=== PATIENT | female | born 1995 | race Asian ===

== ENCOUNTER 2019-08-26 17:09 | Emergency (ER) | payer OTHER ==
--- NOTE | 2019-08-26 18:39 | ED ---
Laceration/Wound HPI - HPI Summary HPI Summary: 24 year old female presents with left middle finger laceration. She cut it on a knife. Her immunizations are up-to-date. Has no medical conditions. The area continues to bleed. no numbness or tingling. Has full range of motion. no medical conditions. - History of Current Complaint Stated Complaint: FINGER LACERATION Time Seen by Provider: 08/26/19 17:57 Pain Intensity: 2 - Allergy/Home Medications Allergies/Adverse Reactions: Allergies Allergy/AdvReac Type Severity Reaction Status Date / Time Penicillins Allergy Rash Verified 08/26/19 17:38 PMH/Surg Hx/FS Hx/Imm Hx Endocrine/Hematology History: Denies: Hx Anticoagulant Therapy Respiratory History: Denies: Hx Asthma Infectious Disease History: No Infectious Disease History: Denies: Traveled Outside the [place] in Last 30 Days - Family History Known Family History: Positive: Non-Contributory - Social History Lives: Dormitory/Roommates Smoking Status (MU): Never Smoked Tobacco Review of Systems Negative: Fever Negative: Chest Pain Negative: Shortness Of Breath Positive: Other - left middle finger laceration All Other Systems Reviewed And Are Negative: Yes Physical Exam Triage Information Reviewed: Yes Vital Signs On Initial Exam: Initial Vitals Temp Pulse Resp BP Pulse Ox 99.3 F 84 14 126/74 98 08/26/19 17:35 08/26/19 17:35 08/26/19 17:35 08/26/19 17:35 08/26/19 17:35 Vital Signs Reviewed: Yes Appearance: Positive: Well-Appearing Skin: Positive: Warm, Dry, Other - 1cm superficial laceration Head/Face: Positive: Normal Head/Face Inspection ENT: Positive: Pharynx normal Respiratory/Lung Sounds: Positive: Clear to Auscultation, Breath Sounds Present Cardiovascular: Positive: Normal, RRR Musculoskeletal: Positive: Strength/ROM Intact - left index finger laceration, Other - capillary refill<2 secs Neurological: Positive: Normal Psychiatric: Positive: Normal Procedures - Sedation Patient Received Moderate/Deep Sedation with Procedure: No - Laceration/Wound Repair 1 Location: Other - left middle finger laceration Length, Depth and Shape: 1cm superficial Irrigated w/ Saline (ccs): 100 Closure: Skin Adhesive Diagnostics - Vital Signs Vital Signs Temp Pulse Resp BP Pulse Ox 08/26/19 17:35 99.3 F 84 14 126/74 98 - Laboratory Lab Statement: Any lab studies that have been ordered have been reviewed, and results considered in the medical decision making process. Laceration Repair Course/Dx - Course Course Of Treatment: 24 year old female presents with left middle finger laceration. She cut it on a knife. Her immunizations are up-to-date. Has no medical conditions. The area continues to bleed. no numbness or tingling. Has full range of motion. no medical conditions. On exam has 1cm superficial laceration of left middle finger. Cleaned area and place glue. told to keep area clean and dry. Patient understands and agrees with plan. - Differential Dx Differental Diagnoses: Abrasion, Avulsion, Laceration - Clinical Impression Provider Diagnoses: Laceration of left middle finger Discharge ED - Sign-Out/Discharge Documenting (check all that apply): Patient Departure - Discharge Plan Condition: Good Disposition: HOME Patient Education Materials: Skin Adhesive Care (ED) Referrals: [facility] - Steve GOLDEN [Primary Care Provider] - Additional Instructions: Take Tylenol or ibuprofen for pain as needed every 6 hours Keep dry for 24 hours Glue will fall off on own Avoid scrubbing area Return to ED if develop any signs of infection or any new or worsening symptoms - Billing Disposition and Condition Condition: GOOD Disposition: Home - Attestation Statements Provider Attestation: I was available for consultation for this patient. I did not evaluate the patient or participate in any medical decision making or disposition decisions unless I am specifically named in the chart as having consulted on the patient. If I have consulted on the patient, please see my own ED note on the patient encounter. Sulaiman Spencer MD
[2019-08-26 18:58] VITALS: BP 99/59
== END 2019-08-26 18:57 | disposition home or self-care (01) ==
LOC: ED 17:09
DX: S61.213A Laceration without foreign body of left middle finger without damage to nail, initial encounter (principal); W26.0XXA Contact with knife, initial encounter; Y92.9 Unspecified place or not applicable; Z88.0 Allergy status to penicillin
CPT/HCPCS: 99282